=== PATIENT | female | born 1990 | race Caucasian/White ===

== ENCOUNTER 2022-10-23 22:16 | Emergency (ER) | payer SELFPAY ==
[~2022-10-23] VITALS: Ht 157.5 cm; Wt 106.3 kg
[2022-10-23] MEDS ORDERED: LORazepam 2 mg/ml vial IM ONE (23:25)
[2022-10-23] MEDS ORDERED: diphenhydrAMINE 50 mg/ml inj IM ONE (23:25)
[2022-10-23] MEDS ORDERED: haloperidol lactate 5mg/ml inj IM ONE (23:25)
[2022-10-23 23:40] LABS: BASOPHILS % (AUTO) 0.4 % (0-1); EOSINOPHILS # (AUTO) 0.2 X10'3 (0-0.9); EOSINOPHILS % (AUTO) 2.2 % (0-6); HEMATOCRIT 37.3 % (35.0-45.0); LYMPHOCYTES # (AUTO) 3.2 X10'3 (1.1-4.8); LYMPHOCYTES % (AUTO) 34.3 % (21-51); MEAN CORPUSCULAR HEMOGLOBIN 33.1 PG (27.0-31.0); MEAN CORPUSCULAR HGB CONC 34.8 g/dL (33.0-36.5); MEAN CORPUSCULAR VOLUME 95.2 FL (78-98); MEAN PLATELET VOLUME 10.3 FL (7.4-10.4); MONOCYTES # (AUTO) 0.9 X10'3 (0-0.9); MONOCYTES % (AUTO) 10.1 % (2-12); NEUTROPHILS # (AUTO) 4.9 X10'3 (1.8-7.7); PLATELET COUNT 164 X10'3 (140-440); RED BLOOD COUNT 3.92 X10'6 (4.20-5.60); RED CELL DISTRIBUTION WIDTH 12.6 % (11.5-14.5); WHITE BLOOD COUNT 9.2 X10'3 (4.5-11.0)
[2022-10-23 23:45] LABS: CLARITY,URINE CLOUDY (Clear); GLUCOSE, URINE NEGATIVE (Neg); KETONES,URINE 15 mg/dl (Neg); LEUKOCYTE ESTERASE ,URINE NEGATIVE (Neg); NITRITES, URINE NEGATIVE (Neg); OCCULT BLOOD,URINE SMALL (Neg); PH,URINE 5.5 (4.8-8.0); PROTEIN,URINE 100 mg/dl (Neg); UROBILINOGEN,URINE 0.2 E.U/dL (0.2-1.0)
[2022-10-23] MEDS ORDERED: haloperidol lactate 5mg/ml inj ONE (23:45)
[2022-10-23] MEDS ORDERED: diphenhydrAMINE 50 mg/ml inj ONE (23:46)
[2022-10-23 23:47] LABS: URINE HCG NEGATIVE (NEG)
[2022-10-23 23:51] LABS: COLOR,URINE DARK YELLOW (Yellow); UA COLLECTION TYPE CLN CATCH MIDSTREAM
--- NOTE | 2022-10-23 23:55 | NUR ---
Patient brought in by [facility] for a DTS. Patient is Bipolar. Patient tells this sign writer letterer or painter that she has not slept for three days. Patient presents as hypomanic with rapid and tangential speech. She exhibits paranoia that her and children are "trying to get rid of me." Patient is labile, she sometimes screams and cusses. It is unknown when the patient last took her Rx medications. The patient is placed in green scrups. Patient was medicated with Haldol 10 mg IM, Benadryl 50 mg I'M, and Ativan 2 mg IM. Verbal outbursts continued. Verbal reports were given to assistant athletic trainer and SENIOR NET SOFTWARE DEVELOPER.
[2022-10-23 23:57] LABS: WBC,URINE 0-4 /HPF (0-4)
[2022-10-23 23:58] LABS: ALANINE AMINOTRANSFERASE 68 U/L (12-78); ALBUMIN 4.3 G/DL (3.4-5.0); ALBUMIN/GLOBULIN RATIO 1.3 (1.1-1.5); ALKALINE PHOSPHATASE 35 IU/L (46-116); ANION GAP 11 (8-16); ASPARTATE AMINO TRANSFERASE 53 U/L (10-37); BILIRUBIN,TOTAL 0.9 MG/DL (0.1-1.0); BLOOD UREA NITROGEN 5 MG/DL (7-18); BUN/CREATININE RATIO 5.6 (10.0-20.0); CALCIUM 9.1 MG/DL (8.5-10.1); CHLORIDE 104 MMOL/L (99-107); GLUCOSE 87 MG/DL (70-104); POTASSIUM 3.3 MMOL/L (3.5-5.1); SODIUM 140 MMOL/L (135-145); TOTAL CARBON DIOXIDE 25.5 MMOL/L (24-32); TOTAL PROTEIN 7.5 G/DL (6.4-8.2); eGFR 72 ML/MIN
[2022-10-23 23:58] LABS: SQUAMOUS EPITHELIAL CELL,UR MANY /LPF (FEW)
[2022-10-23 23:59] LABS: AMORPHOUS URATES 1+; MUCUS STRANDS MANY /LPF (Neg); URINE AMPHETAMINE SCREEN NEGATIVE (Neg); URINE BARBITUATE SCREEN NEGATIVE (Neg); URINE BENZODIAZEPINES SCREEN POSITIVE (Neg); URINE CANNABINOID SCREEN POSITIVE (Neg); URINE COCAINE SCREEN NEGATIVE (Neg); URINE METHADONE SCREEN NEGATIVE (Neg); URINE OPIATE SCREEN NEGATIVE (Neg); URINE PHENCYCLIDINE SCREEN NEGATIVE (Neg)
[2022-10-24] LABS: BACTERIA,URINE 1+ /HPF (Neg); RENAL CELLS, URINE FEW /HPF; TRANSITIONAL EPI CELLS,URINE FEW /HPF
[2022-10-24 00:01] LABS: RBC,URINE 0-2 /HPF (0-2)
[2022-10-24 00:01] LABS: ETHANOL < 0.010 GM/DL (0.0-0.010)
[2022-10-24] MEDS ORDERED: LORazepam 2 mg/ml vial IM ONE (00:20)
[2022-10-24] MEDS ORDERED: potassium Cl 20 mEq SR tablet PO STA (00:25)
[2022-10-24] MEDS ORDERED: CLON1TAB96 PO (00:42)
[2022-10-24] MEDS ORDERED: DIAZ5TAB22 PO (00:42)
[2022-10-24] MEDS ORDERED: LAMO150T2 PO (00:42)
--- NOTE | 2022-10-24 07:00 | NUR ---
PATIENT AWAKE AND STANDING IN FOORWAY OF ROOM. AGITATED AND STATES SHE WANTS TO GO HOME. PATIENT INFORMED OF 5150 HOLD AT THIS TIME. REDIRECTED TO ROOM AND PHONE GIVEN TO CALL FAMILY.
--- NOTE | 2022-10-24 09:27 | NUR ---
ASSUMED CARE FROM RN. PT IN STABLE CONDTION. MOTHER AT BEDSIDE.
[2022-10-24 09:46] VITALS: BP 102/75
== END 2022-10-24 09:53 | disposition home or self-care (01) ==
LOC: ER 22:18
DX: F29 Unspecified psychosis not due to a substance or known physiological condition (principal); F31.9 Bipolar disorder, unspecified; Z79.899 Other long term (current) drug therapy
CPT/HCPCS: 36415; 73610; 80053; 80305; 80320; 81001; 81025; 84443; 85025; 96372; 99285; J1200; J1630; J2060